=== PATIENT | male | born 1960 | race Caucasian/White ===

== ENCOUNTER 2017-10-04 07:35 | Outpatient (CLI) | payer BC ==
[~2017-10-04] VITALS: Ht 182.9 cm; Wt 100.0 kg
--- NOTE | ~2017-10-04 | HEMODYNAMI ---
PATIENT:MARY ELLEN ZHANG MEDICAL RECORD: [id number] : 64 LOCATION:DTienCAT ADMISSION DATE: 10/04/17 Generatedon:10/04/201710:20 Patient name: MARY ELLEN ZHANG Patient #: [id number] SSN: [id number] : 1960 Date of study: 10/04/2017 Page: Of Hemodynamic Procedure Report Patient Data Patient Demographics Procedure consent was obtained First Name: MARY ELLEN Gender: Male Last Name: VICENTE : 1960 Middle Initial: RADHA Age: 56 year(s) Patient #: [id number] Race: SSN: [id number] Additional ID: [id number] Contact details Address: [place] [address] State: [place] City: [place] Zip code: [address] Admission Admission Data Admission Date: 10/04/2017 Admission Time: 7:35 Arrival Date: 10/04/2017 Arrival Time: 7:35 Admit Source: Other Insurance Payor: Private health insurance Height (in.): 72 BSA: 2.21 (m2) Height (cm.): 182.88 BMI: 29.43 (kg/m2) Weight (lbs.): 217 Weight (kg.): 98.43 Lab Results Lab Result Date: 10/04/2017 Lab Result Time: 0:00 Biochemistry Name Units Result Min Max BUN mg/dl 19 --(----)*- 7 18 Creatinine mg/dl 1.1 --(--*-)-- 0.6 1.3 CBC Name Units Result Min Max Hemoglobin g/dl 13.5 --(*---)-- 13.5 17.5 Procedure Procedure Types Cath Procedure Diagnostic Procedure [facility] w/Coronaries Sedation Charges Moderate Sedation up to 15 minutes Procedure Description Procedure Date Procedure Date: 10/04/2017 Procedure Start Time: 10:07 Procedure End Time: 10:19 Procedure Staff Name Function Manfred Hagen MD Performing Physician Gordon Shanks RN Nurse Judi Gale RT Scrub Shanice Rey RT Monitor Procedure Data Cath Procedure Fluoroscopy Diagnostic fluoroscopy Total fluoroscopy Time: 3.7 time: 3.7 min min Diagnostic fluoroscopy Total fluoroscopy dose: 492 dose: 492 mGy mGy Contrast Material Contrast Material Type Amount (ml) Isovue 300 35 Entry Location Entry Primary Successful Side Size Upsize Upsize Entry Closure Orantes ccessful Closure Location (Fr) 1 (Fr) 2 (Fr) Remarks Device Remarks Radial Right 6 Fr Mechanical artery Short Compression Estimated blood loss: 5 ml Diagnostic catheters Device Type Used For End Catheter Placement DIAGNOSTIC [place] 110cm 5 Multi-vessel Fr catheter ([id number]) Angiography DIAGNOSTIC AR 2 MOD 5 Fr Right Coronary catheter ([id number]) Angiography Procedure Complications No complications Procedure Medications Medication Administration Route Dosage Oxygen etCO2 Nasal cannula 2 l/min Heparin Flush Bag added to field 2 bags (1000units/500ml NS) 0.9% NaCl I.V. 100 ml/hr Radial Cocktail added to field 1 syringe (Verapomil 2mg/Nitro 400mcg/Heparin 1500units) Fentanyl I.V. 50 mcg Versed I.V. 1 mg Fentanyl I.V. 50 mcg Versed I.V. 1 mg Fentanyl I.V. 50 mcg Versed I.V. 1 mg Radial Cocktail I.A. 1 syringe (Verapomil 2mg/Nitro 400mcg/Heparin 1500units) Fentanyl I.V. 50 mcg Versed I.V. 1 mg Hemodynamics Rest BSA: 2.21 (m2) HGB: 13.5 (g/dl) O2 Consumption: Estimated: 254.13 (ml/min) O2 Co nsumption indexed: Estimated:114.99 (ml/min/m) Heart Rate: 61 (bpm) Pressure Samples Time Site Value (mmHg) Purpose Heart Use Rate(bpm) 10:10 LV 59/26,23 Snapshot 77 Snapshots Pre Cath Intra NCS Post Cath Vital Signs Time Heart Resp SPO2 etCO2 NIBP Rhythm Pain Sedation Rate (ipm) (%) (mmHg) (mmHg) Status Level (bpm) 9:36:24 65 19 97 0 127/76(95) NSR 0 (11) 10(A) , No pain 9:40:36 66 15 98 38.3 123/78(94) NSR 0 (11) 10(A) , No pain 9:44:47 69 18 98 32.3 124/72(93) NSR 0 (11) 10(A) , No pain 9:48:59 62 16 97 42.1 117/75(88) NSR 0 (11) 10(A) , No pain 9:53:09 60 17 97 39.8 112/69(88) NSR 0 (11) 10(A) , No pain 9:57:17 66 16 95 34.5 123/72(92) NSR 0 (11) 10(A) , No pain 10:01:29 73 16 93 13.5 118/77(90) NSR 0 (11) 9(A) , No pain 10:05:41 64 16 96 23.2 121/68(88) NSR 0 (11) 9(A) , No pain 10:09:53 67 16 93 11.2 117/68(93) NSR 0 (11) 9(A) , No pain 10:14:07 69 17 91 8.2 120/65(97) NSR 0 (11) 9(A) , No pain 10:18:19 69 16 97 18 125/70(89) NSR 0 (11) 9(A) , No pain Medications Time Medication Route Dose Verified Delivered Reason Notes Effectiveness by by 9:41:25 Oxygen etCO2 2 l/min Manfred Leyva Per Nasal Xiao Shanks RN physician cannula 9:41:33 Heparin Flush added 2 bags Manfred Leyva used for Bag to Xiao Shanks RN procedure (1000units/500ml field NS) 9:41:41 0.9% NaCl I.V. 100 Manfred Leyva Per ml/hr Xiao Shanks RN physician 9:43:43 Radial Cocktail added 1 Manfred Leyva used for (Verapomil to syringe Xiao Shanks RN procedure 2mg/Nitro field 400mcg/Heparin 1500units) 9:57:24 Fentanyl I.V. 50 mcg Manfred Leyva for sedation Xiao Shanks RN 9:57:31 Versed I.V. 1 mg Manfred Leyva for sedation Xiao Shanks RN 10:05:53 Fentanyl I.V. 50 mcg Manfred Leyva for sedation Xiao Shanks RN 10:05:57 Versed I.V. 1 mg Manfred Leyva for sedation Xiao Shanks RN 10:07:14 Fentanyl I.V. 50 mcg Manfred Leyva for sedation Xiao Shanks RN 10:07:18 Versed I.V. 1 mg Manfred Leyva for sedation Xiao Shanks RN 10:09:17 Radial Cocktail I.A. 1 Manfred Shearer for (Verapomil syringe Xiao Hagen MD vasodilation 2mg/Nitro 400mcg/Heparin 1500units) 10:09:31 Fentanyl I.V. 50 mcg Manfred Leyva for sedation Xiao Shanks RN 10:09:36 Versed I.V. 1 mg Manfred Leyva for sedation Xiao Shanks nuclear medicine officer Log Time Note 9:00:48 Judi Gale RT(R) sent for patient. Start room use. 9:08:39 Patient Height : 72 inches 9:08:44 Patient Weight : 217 lbs 9:10:45 Diagnostic Cath status Elective 9:10:49 Time tracking: Regular hours (M-F 7:00 - 5:00) 9:10:55 Plan of Care:Hemodynamics will remain stable., Cardiac rhythm will remain stable., Comfort level will be maintained., Respiratory function will remain adequate., Patient/ family verbilizes understanding of procedure., Procedure tolerated without complication., Recovers from procedure without complications.. 9:11:02 Patient received from Pre/Post Procedure Room to CCL 2 Alert and oriented. Tansferred to table in Supine position. 9:11:03 Warm blankets applied, and anabel hugger turned on for patient comfort. 9:22:44 Informed consent obtained and on chart 9:23:42 Admit Source: Other 9:23:45 Arrival Date: 10/04/2017 7:35:00 AM 9:23:59 Insurance Payor : Private health insurance 9:25:29 Lab Result : BUN 19 mg/dl 9:25:29 Lab Result : Hemoglobin 13.5 g/dl 9:25:29 Lab Result : Creatinine 1.1 mg/dl 9:25:33 Correct patient and procedure confirmed by team. 9:25:34 ECG and BP/O2 sat monitors applied to patient. 9:35:21 Vital chart was started 9:35:22 Baseline sample Acquired. 9:35:25 Rhythm: sinus rhythm 9:35:27 Full Disclosure recording started 9:35:32 H&P Date Dictated: 10/04/2017 Within 30 days and on chart., H&P Addendum completed by physician on day of procedure. (MUST COMPLETE FOR ALL OUTPATIENTS). 9:35:33 Pre-procedure instructions explained to patient. 9:35:33 Pre-op teaching completed and patient verbalized understanding. 9:35:34 Family in waiting room. 9:35:36 Patient NPO since Midnight. 9:35:40 Is the patient allergic to Iodine/contrast media? No. 9:35:41 Was the patient premedicated? No 9:36:04 Is patient on blood thinner?Yes 9:36:07 ACC The patient was administered the following blood thiners within the last 24 hours: ACCPlavix 9:36:09 Patient diabetic? No. 9:36:18 Previous problem with sedation/anesthesia? No ? 9:36:19 Snore? Yes 9:36:20 Sleep apnea? No 9:36:21 Deviated septum? No 9:36:22 Opens mouth fully? Yes 9:36:25 Sticks out tongue? Yes 9:36:27 Airway obstruction? No ? 9:36:33 Dentures? No ? 9:36:43 Pre procedure: right dorsailis pedis pulse 1+ Palpable, but thready & weak; easily obliterated 9:36:45 Pre procedure: left dorsailis pedis pulse 1+ Palpable, but thready & weak; easily obliterated 9:36:47 Patient pain scale 0/10 ?. 9:36:54 IV patent on arrival in left forearm with 0.9% NaCl at O. 9:36:57 Lab results completed and on chart. 9:37:01 Right Radial & Right Groin area was prepped with chlora-prep and draped in sterile fashion 9:37:02 Alarms reviewed by R. N. 9:37:02 Sharps counted by scrub and verified by R.N. 9:41:25 Oxygen 2 l/min etCO2 Nasal cannula was administered by Gordon Shanks RN; Per physician; 9:41:33 Heparin Flush Bag (1000units/500ml NS) 2 bags added to field was administered by Gordon Shanks RN; used for procedure; 9:41:41 0.9% NaCl 100 ml/hr I.V. was administered by Gordon Shanks RN; Per physician; 9:43:43 Radial Cocktail (Verapomil 2mg/Nitro 400mcg/Heparin 1500units) 1 syringe added to field was administered by Gordon Shanks RN; used for procedure; 9:48:27 Zero performed for pressure channel P1 9:56:03 Physician arrived 9:56:03 --------ALL STOP TIME OUT------ 9:56:04 Final Timeout: patient, procedure, and site verified with staff and physician. All members of the team are in agreement. 9:56:07 Right Radial & Right Groin site verified by team. 9:56:10 Physical assessment completed. ASA score P 2 - A patient with mild systemic disease as per Manfred Hagen MD. 9:56:13 Sedation plan: IV Moderate Sedation Medication:Versed, Fentanyl 9:57:14 Use device set Radial Dx or PCI 9:57:15 ACIST Syringe (40714) opened to sterile field. 9:57:15 Medline Cath Pack ([id number]) opened to sterile field. 9:57:16 Bag Decanter (2002) opened to sterile field. 9:57:16 DIAGNOSTIC WIRE .035 260cm J wire (249214) opened to sterile field. 9:57:17 ACIST Hand Control (73089) opened to sterile field. 9:57:17 ACIST Manifold (36518) opened to sterile field. 9:57:18 Tegaderm 4 x 4 (1626W) opened to sterile field. 9:57:18 MBrace Wrist Support ([id number]) opened to sterile field. 9:57:19 SHEATH 6Fr Prelude Radial ([id number]) opened to sterile field. 9:57:24 Fentanyl 50 mcg I.V. was administered by Gordon Shanks RN; for sedation; 9:57:31 Versed 1 mg I.V. was administered by Gordon Shanks RN; for sedation; 10:05:53 Fentanyl 50 mcg I.V. was administered by Gordon Shanks RN; for sedation; 10:05:57 Versed 1 mg I.V. was administered by Gordon Shanks RN; for sedation; 10:07:14 Fentanyl 50 mcg I.V. was administered by Gordon Shanks RN; for sedation; 10:07:18 Versed 1 mg I.V. was administered by Gordon Shanks RN; for sedation; 10:07:25 Procedure started. 10:07:30 Local anesthetic to right radial artery with Lidocaine 2% by Manfred Hagen MD.INITIAL ACCESS ONLY 10:08:24 A 6 Fr Short sheath was inserted into the Right Radial artery 10:08:49 A DIAGNOSTIC [place] 110cm 5 Fr catheter (568084) was advanced over the wire and used for Multi-vessel Angiography. 10:09:17 Radial Cocktail (Verapomil 2mg/Nitro 400mcg/Heparin 1500units) 1 syringe I.A. was administered by Manfred Hagen MD; for vasodilation; 10:09:31 Fentanyl 50 mcg I.V. was administered by Gordon Shanks RN; for sedation; 10:09:36 Versed 1 mg I.V. was administered by Gordon Shansk RN; for sedation; 10:10:35 LV hemodynamics recorded. 10:10:36 LV gram done using BLANCHARD 10:10:39 Injector settings: Ml/sec: 5, Volume: 15, 10:10:45 EF : 60 % 10:11:22 Catheter removed. 10:12:23 A DIAGNOSTIC AR 2 MOD 5 Fr catheter ([id number]) was advanced over the wire and used for Right Coronary Angiography. 10:12:46 RCA angiography performed. 10:12:57 Injector settings: Ml/sec: 3, Volume: 6, 10:12:59 Catheter removed. 10:13:39 GUIDE 6FR EBU 3.0 catheter ([id number]) opened to sterile field. 10:15:39 LCA angiography performed. 10:15:41 Injector settings: Ml/sec: 3, Volume: 6, 10:15:49 Catheter removed. 10:17:01 TR BAND Standard ([id number]) opened to sterile field. 10:17:14 Sheath removed intact; hemostasis achieved with Mechanical Compression to the Right Radial artery. 10:17:15 Procedure ended.(Physican Out) 10:18:11 Fluoroscopy time 03.70 minutes. 10:18:18 Fluoroscopy dose: 492 mGy 10:18:18 Flurop Dose total: 492 10:18:24 Contrast amount:Isovue 300 35ml. 10:18:25 Sharps counted by scrub and verified by R.N. 10:18:26 Insertion/operative site no bleeding no hematoma. 10:18:41 Post right radial artery:stable 10:18:43 Post Procedure Pulses reassessed and unchanged 10:18:46 Post procedure rhythm: unchanged. 10:18:50 Estimated blood loss: 5 ml 10:18:51 Post procedure instruction explained to patient.Patient verbalizes understanding. 10:18:51 Patient needs reinforcement of post procedure teaching. 10:19:02 Procedure type changed to Cath procedure, Diagnostic procedure, LHC, LHC w/Coronaries, Sedation Charges, Moderate Sedation up to 15 minutes 10:19:03 Procedure and supply charges have been captured, reviewed, submitted and are correct. 10:19:08 Procedure Complication : No complications 10:19:10 Vital chart was stopped 10:19:11 See physician's report for complete and final results. 10:19:13 Report given to Pre/Post Procedure Room. 10:19:15 Patient transfered to Pre/Post Procedure Room with Stretcher. 10:19:17 Procedure ended. 10:19:17 Full Disclosure recording stopped 10:19:24 End room use (Document Last) Device Usage Item Name Manufacture Quantity Catalog Number Hospital Part Current M inimal Lot# / Charge Number Stock Stock Serial# Code ACIST Syringe Acist 1 43044 839934 073098 645842 2 0 (95570) [employer] Inc Medline Cath Cardinal 1 [id number] 615102 56772 368159 5 [facility] ([id number]) Bag Decanter Microtek 1 2001S 994414 69721 279716 5 () Medical Inc. DIAGNOSTIC WIRE [facility] [place] 1 116459 539167 974246 913515 3 0 .035 260cm J wire (852520) ACIST Hand Acist 1 11626 860918 776713 965678 5 Control (25963) [employer] Inc ACIST Manifold Acist 1 30514 034966 071569 253653 5 (74664) Medical Systems Inc Tegaderm 4 x 4 3M 1 1626W 043435 236736 822354 5 (1626W) MBrace Wrist Advanced 1 140-0250-00 779729 22045 697171 5 Support Vascular ([id number]) Dynamics SHEATH 6Fr Merit 1 [id number] 370829 987590 185381 5 Prelude Radial Medical ([id number]) DIAGNOSTIC Terumo 1 40-7974 847088 772778 219289 5 [place] 110cm 5 Fr catheter (909788) DIAGNOSTIC AR 2 Cardinal 1 [id number] 231748 141690 316463 2 0 MOD 5 Fr Health catheter (584442H) GUIDE 6FR EBU Medtronic 1 [id number] 268628 62831 433440 0 3.0 catheter ([id number]) TR BAND Terumo 1 [id number] 379638 752490 625518 4 0 Standard ([id number]) Signature Audit Allison Stage Time Signature Unsigned Intra-Procedure 10/04/2017 Shanice Rey 10:20:06 AM RT(R) Signatures Monitor : Shanice Rey RT Signature : Date : Time : [facility] [address] [place] [address]
--- NOTE | ~2017-10-04 | OP ---
PATIENT NAME: MARY ELLEN ZHANG MEDICAL RECORD: [id number] :64 LOCATION:D.CAT ADMISSION DATE: SURGEON: ENRIQUE WOOD MD DATE OF OPERATION: 10/04/2017 PROCEDURES: 1. Left heart catheterization. 2. Selective coronary angiography. 3. Left ventriculogram. INDICATION: Chest pain compatible with angina and abnormal nuclear stress test. PROCEDURE IN DETAIL: After informed consent was obtained and after a detailed description of risks, benefits as well as alternative therapies, the patient elected to proceed with angiogram and heart catheterization. The right radial area was prepped and draped in normal sterile fashion. Right radial artery was cannulated via modified Seldinger technique with placement of 5-Estonian sheath. All catheters exchanged through this sheath. FINDINGS: Left ventriculogram was performed in standard 30-degree BLANCHARD view, reveals good cardiac wall motion throughout all segments. Overall ejection fraction estimated 60%. SELECTIVE CORONARY ANGIOGRAPHY: Left main, left anterior descending, left circumflex, right coronary artery are all smooth-walled vessels with no angiographic evidence of coronary artery disease. OVERALL IMPRESSION: 1. No angiographic evidence of coronary artery disease. 2. Normal left heart pressures. 3. Normal left ventricular systolic function. Chest pain is noncardiac in etiology. No further cardiac workup needs to be ascertained. TRANSINT:[id number] Voice Confirmation ID: [id number] DOCUMENT ID: [id number] ENRIQUE WOOD MD at 1730 CC: [id number] DICTATION DATE: 10/04/17 1019 [employer]AL: 10/04/17 1234 DEP CLI 10/04/17 [place] [id number] [place] [id number]
[2017-10-04] MEDS ORDERED: FLOMAX0.4 MG PO (07:47)
[2017-10-04] MEDS ORDERED: PLAVIX75 MG PO (07:47)
[2017-10-04] MEDS ORDERED: SYNTHROID88 MCG PO (07:47)
[2017-10-04] MEDS ORDERED: FLUTICASONE PRO16 GM NASAL (07:47)
[2017-10-04] MEDS ORDERED: LAMICTAL100 MG PO (07:48)
[2017-10-04] MEDS ORDERED: CELEXA40 MG PO (07:50)
[2017-10-04 08:00] VITALS: BP 135/80; Ht 182.9 cm; Wt 100.0 kg
[2017-10-04 08:15] LABS: BASOPHILS 1.2 % (0-2); EOSINOPHILS 2.5 % (0-7); HEMOGLOBIN 13.5 g/dL (13.5-17.5); IMMATURE GRANULOCYTES 1.3 % (0-5); MCHC 32.9 g/dL (31.0-37.0); MEAN PLATELET VOLUME 11.2 fL (7.4-10.4); MONOCYTES 9.4 % (2-11); NEUTROPHILS 55.6 % (40-80); PLATELET COUNT 184 10x3/uL (130-400); RBC 4.66 10x6/uL (4.20-6.10); RDW 13.3 % (11.5-14.5); WBC 6.1 10x3/uL (4.8-10.8)
[2017-10-04 08:31] LABS: ANION GAP 10.6 mmol/L (8-16); CALCIUM 8.7 mg/dL (8.5-10.1); CARBON DIOXIDE 27.6 mmol/L (21.0-32.0); CREATININE - SERUM 1.1 mg/dL (0.6-1.3); POTASSIUM - SERUM 4.2 mmol/L (3.5-5.1)
== END 2017-10-04 13:40 | disposition home or self-care (01) ==
LOC: D.CATH 07:35
PROVIDERS: Internal Medicine Interventional Cardiology
DX: R07.89 Other chest pain (principal); Z01.812 Encounter for preprocedural laboratory examination